=== PATIENT | female | born 1990 | race Hispanic/Latino ===

== ENCOUNTER 2018-03-13 17:58 | Observation (INO) | payer MEDICAID, OTHER ==
[~2018-03-13] VITALS: Ht 144.8 cm; Wt 113.4 kg
[~2018-03-13 17:58] MED LIST: FLUO-126 PO; FURO40TA7 PO; LAMO25TA3 PO; LEVO500T2 PO; TRAZ-144 PO
[2018-03-13 18:51] LABS: BASOPHILS % (AUTO) 0.6 % (0.0-5.0); EOSINOPHILS % (AUTO) 2.8 % (0.0-8.0); HEMATOCRIT 42.8 % (36-48); LYMPHOCYTES % (AUTO) 16.8 % (21.0-51.0); MEAN CORPUSCULAR HEMOGLOBIN 25.5 pg (27.0-33.0); MEAN CORPUSCULAR HGB CONC 31.5 g/dL (32.0-36.0); MONOCYTES % (AUTO) 6.6 % (3.0-13.0); NEUTROPHILS % (AUTO) 73.2 % (40.0-77.0); PLATELET COUNT (AUTO) 275 K/uL (130-400); RED BLOOD CELL COUNT(AUTO) 5.28 MIL/uL (4.00-5.50); RED CELL DISTRIBUTION WIDTH 14.5 % (11.0-15.5); WHITE BLOOD COUNT (AUTO) 9.8 K/uL (4.8-10.8)
[2018-03-13 19:03] LABS: INR 0.98 (0.85-1.15); PARTIAL THROMBOPLASTIN TIME 27.7 SEC (26.3-35.5); PROTHROMBIN TIME 10.3 SEC (9.6-11.6)
[2018-03-13 19:04] LABS: CREATININE 0.6 mg/dL (0.5-1.5); POTASSIUM 4.2 mmol/L (3.5-5.1)
[2018-03-13] MEDS ORDERED: MISOPROSTOL 200 MCG TABLET PR SCH (22:45)
[2018-03-13] MEDS ORDERED: METHYLERGONOVINE MALEATE 0.2 MG/1 ML ML IM SCH (22:45)
[2018-03-13] MEDS ORDERED: PROMETHAZINE HCL 25 MG/ML 1ML AMPULE IM PRN (22:45)
[2018-03-13] MEDS ORDERED: MEPERIDINE-PF 50 MG/ML SYG IM PRN (22:45)
[2018-03-13] MEDS ORDERED: LACTATED RINGERS 1000ML 1,000 ML IV ONE (23:24)
[2018-03-14] VITALS (18 sets, daily range): BP systolic 73–128; BP diastolic 37–71
[2018-03-14] MEDS: LACTATED RINGERS 1000ML 1,000 ML IV SCH ×4 (05:25→23:35)
[2018-03-14] MEDS ORDERED: MISOPROSTOL 200 MCG TABLET ONE (08:01)
[2018-03-14 10:57] LABS: HEMATOCRIT 37.3 % (36-48); MEAN CORPUSCULAR HEMOGLOBIN 26.2 pg (27.0-33.0); MEAN CORPUSCULAR HGB CONC 32.5 g/dL (32.0-36.0); MEAN CORPUSCULAR VOLUME 80.6 fL (79-99); PLATELET COUNT (AUTO) 243 K/uL (130-400); RED BLOOD CELL COUNT(AUTO) 4.63 MIL/uL (4.00-5.50); RED CELL DISTRIBUTION WIDTH 14.2 % (11.0-15.5); WHITE BLOOD COUNT (AUTO) 9.1 K/uL (4.8-10.8)
[2018-03-14] MEDS ORDERED: FENTANYL CITRATE PF 50 MCG/1 ML 2ML VIAL ONE (11:06)
[2018-03-14] MEDS ORDERED: MIDAZOLAM HCL 1 MG/ML 2ML VIAL ONE (11:06)
[2018-03-14] MEDS ORDERED: CALDOLOR 800MG+NS 250ML 250 ML IV ONE (11:43)
[2018-03-14] MEDS ORDERED: SENSORCAINE/DEXT/PF 0.75% 2ML AMP IJ ONE (11:44)
[2018-03-14] MEDS ORDERED: CEFAZOLIN SODIUM 1 GM VIAL IVP ONE (11:45)
[2018-03-14 12:04] LABS: EOSINOPHILS % (MANUAL) 2 % (1-6); LYMPHOCYTES % (MANUAL) 10 % (22-44); MAN.DIFF COMMENT-IMPRESSION MANUAL DIFFERENTIAL; MONOCYTES % (MANUAL) 3 % (2-9); PLATELET MORPHOLOGY COMMENT ADEQUATE; REACTIVE LYMPHOCYTES 1 % (0-0); SEGMENTED NEUTROPHILS % 84 % (40-70)
[2018-03-14] MEDS ORDERED: IPRATROPIUM/ALBUTEROL SULFATE 3 ML SOLUTION IH ONE (12:54)
[2018-03-15 03:59] VITALS: BP 106/53
[2018-03-15 05:35] LABS: BASOPHILS % (AUTO) 0.6 % (0.0-5.0); EOSINOPHILS % (AUTO) 3.1 % (0.0-8.0); HEMATOCRIT 37.3 % (36-48); LYMPHOCYTES % (AUTO) 19.4 % (21.0-51.0); MEAN CORPUSCULAR HEMOGLOBIN 25.3 pg (27.0-33.0); MEAN CORPUSCULAR HGB CONC 31.1 g/dL (32.0-36.0); MEAN CORPUSCULAR VOLUME 81.5 fL (79-99); NEUTROPHILS % (AUTO) 71.9 % (40.0-77.0); PLATELET COUNT (AUTO) 284 K/uL (130-400); RED BLOOD CELL COUNT(AUTO) 4.57 MIL/uL (4.00-5.50); WHITE BLOOD COUNT (AUTO) 7.5 K/uL (4.8-10.8)
[2018-03-15 05:55] LABS: CREATININE 0.6 mg/dL (0.5-1.5); POTASSIUM 3.9 mmol/L (3.5-5.1)
[2018-03-15 07:38] VITALS: BP 115/59
[2018-03-15] MEDS ORDERED: IBUP-1673 PO (11:15)
[2018-03-15] MEDS ORDERED: DOXY100C2 PO (11:16)
[2018-03-15] MEDS ORDERED: TRAM50TA4 PO (11:17)
[2018-03-15] MEDS ORDERED: METR500T PO (11:18)
[2018-03-15 11:30] VITALS: BP 111/63
== END 2018-03-15 15:45 | disposition home or self-care (01) ==
LOC: EDH 17:58 → EDHIP 17:59 → UNDOADMOB 21:56 → WSH 03-14 05:45 → 4CH 03-14 07:50
PROVIDERS: ADMIT Obstetrics & Gynecology; ATTEND Obstetrics & Gynecology
DX: O03.4 Incomplete spontaneous abortion without complication (principal); E66.01 Morbid (severe) obesity due to excess calories; O99.211 Obesity complicating pregnancy, first trimester; O10.111 Pre-existing hypertensive heart disease complicating pregnancy, first trimester; Z3A.10 10 weeks gestation of pregnancy; I50.9 Heart failure, unspecified; O99.011 Anemia complicating pregnancy, first trimester; D64.9 Anemia, unspecified
CPT/HCPCS: 36415 ×3; 59812; 76817; 80048 ×2; 84702 ×2; 84703; 85025 ×3; 85610; 85730; 86850; 86900; 86901; 86922; 88305; 94640; 99285; A4351; A4606; G0378 ×46; J0690; J1741; J2210 ×2; J2250; J3010; J3490; J7120 ×3; 76856

== ENCOUNTER 2018-04-07 17:10 | Inpatient (IN) | payer MEDICAID, OTHER ==
[~2018-04-07] VITALS: Ht 149.9 cm; Wt 124.9 kg
[~2018-04-07 17:10] MED LIST changes: +DOXY100C2 PO; -FLUO-126 PO; -FURO40TA7 PO; +IBUP-1673 PO; -LAMO25TA3 PO; -LEVO500T2 PO; +METR500T PO; +TRAM50TA4 PO; -TRAZ-144 PO
[2018-04-07 18:20] LABS: ABG BASE EXCESS 4.5 mmol/L (-2.0-3.0); ABG HCO3 32.7 mmol/L (21.0-28.0); ABG OXYGEN SATURATION 78.6 % (95.0-99.0); ABG PCO2 65 mmHg (32-45)
[2018-04-07 18:20] LABS: BASOPHILS % (AUTO) 0.5 % (0.0-5.0); EOSINOPHILS % (AUTO) 4.3 % (0.0-8.0); HEMATOCRIT 35.7 % (36-48); LYMPHOCYTES % (AUTO) 13.9 % (21.0-51.0); MEAN CORPUSCULAR HEMOGLOBIN 23.2 pg (27.0-33.0); MEAN CORPUSCULAR HGB CONC 30.8 g/dL (32.0-36.0); MEAN CORPUSCULAR VOLUME 75.5 fL (79-99); MONOCYTES % (AUTO) 6.4 % (3.0-13.0); NEUTROPHILS % (AUTO) 74.9 % (40.0-77.0); PLATELET COUNT (AUTO) 282 K/uL (130-400); RED BLOOD CELL COUNT(AUTO) 4.73 MIL/uL (4.00-5.50); RED CELL DISTRIBUTION WIDTH 16.5 % (11.0-15.5); WHITE BLOOD COUNT (AUTO) 8.6 K/uL (4.8-10.8)
[2018-04-07 18:31] LABS: CREATININE 0.7 mg/dL (0.5-1.5); POTASSIUM 4.4 mmol/L (3.5-5.1)
[2018-04-07 18:36] LABS: ALBUMIN 3.1 g/dL (3.5-5.0); BILIRUBIN,TOTAL 0.4 mg/dL (0.2-1.0); TOTAL PROTEIN, SERUM 7.8 g/dL (6.0-8.3)
[2018-04-07 20:10] LABS: APPEARANCE,URINE Cloudy (CLEAR); BILIRUBIN,URINE Negative (NEGATIVE); COLOR,URINE Yellow (YELLOW); GLUCOSE, URINE (UA) Negative (NEGATIVE); KETONES,URINE Negative (NEGATIVE); LEUKOCYTE ESTERASE ,URINE Trace (NEGATIVE); NITRATE,URINE Negative (NEGATIVE); OCCULT BLOOD,URINE Negative (NEGATIVE); PH,URINE 6.5 (5.0-8.0); PROTEIN,URINE Trace (NEGATIVE)
[2018-04-07 20:31] LABS: RBC,URINE None Seen /HPF (0-1)
[2018-04-07 20:32] LABS: BACTERIA,URINE Few /HPF (None Seen)
[2018-04-07] MEDS ORDERED: FUROSEMIDE 10 MG/ML 4ML VIAL ONE (22:17)
[2018-04-07] MEDS ORDERED: IOPAMIDOL-370 75 ML VIAL IV ONE (23:42)
[2018-04-08] MEDS ORDERED: IPRATROPIUM/ALBUTEROL SULFATE 3 ML SOLUTION IH ONE (01:11)
[2018-04-08] MEDS ORDERED: ZOSYN 3.375GM+NS 50ML 50 ML IV ONE ×2 (01:19→11:10)
[2018-04-08] MEDS ORDERED: ENOXAPARIN SODIUM 40 MG/0.4 ML SYRINGE SQ ONE (01:19)
[2018-04-08 04:18] LABS: ABG BASE EXCESS -3.5 mmol/L (-2.0-3.0); ABG HCO3 25.6 mmol/L (21.0-28.0); ABG OXYGEN SATURATION 91.7 % (95.0-99.0); ABG PCO2 64 mmHg (32-45)
[2018-04-08 06:04] LABS: BASOPHILS % (AUTO) 0.5 % (0.0-5.0); EOSINOPHILS % (AUTO) 4.2 % (0.0-8.0); HEMATOCRIT 33.9 % (36-48); LYMPHOCYTES % (AUTO) 17.4 % (21.0-51.0); MEAN CORPUSCULAR HEMOGLOBIN 22.9 pg (27.0-33.0); MEAN CORPUSCULAR HGB CONC 30.4 g/dL (32.0-36.0); MEAN CORPUSCULAR VOLUME 75.3 fL (79-99); MONOCYTES % (AUTO) 7.1 % (3.0-13.0); NEUTROPHILS % (AUTO) 70.8 % (40.0-77.0); PLATELET COUNT (AUTO) 277 K/uL (130-400); RED CELL DISTRIBUTION WIDTH 16.4 % (11.0-15.5)
[2018-04-08 06:13] LABS: CREATININE 0.6 mg/dL (0.5-1.5); POTASSIUM 3.8 mmol/L (3.5-5.1)
[2018-04-08 06:16] LABS: ALBUMIN 2.8 g/dL (3.5-5.0); BILIRUBIN,TOTAL 0.5 mg/dL (0.2-1.0); TOTAL PROTEIN, SERUM 7.2 g/dL (6.0-8.3)
[2018-04-08 16:00] VITALS: BP 121/71
[2018-04-08 19:20] VITALS: BP 120/68
[2018-04-08] MEDS ORDERED: ACETYLCYSTEINE 10% 100MG/ML 4ML VIAL PO SCH (19:30)
[2018-04-08 20:01] LABS: ABG BASE EXCESS 7.2 mmol/L (-2.0-3.0); ABG HCO3 37.1 mmol/L (21.0-28.0); ABG OXYGEN SATURATION 94.3 % (95.0-99.0); ABG PCO2 79 mmHg (32-45)
[2018-04-08] MEDS: ZOSYN 3.375GM+NS 50ML 50 ML IV SCH (21:03)
[2018-04-08] MEDS: FUROSEMIDE 10 MG/ML 4ML VIAL IVP SCH (21:03)
[2018-04-08] MEDS: ENOXAPARIN SODIUM 40 MG/0.4 ML SYRINGE SQ SCH (21:09)
[2018-04-08 23:10] VITALS: BP 117/71
[2018-04-09] MEDS: ACETYLCYSTEINE 10% 100MG/ML 4ML VIAL IH SCH ×5 (00:31→23:49)
[2018-04-09] MEDS: IPRATROPIUM/ALBUTEROL SULFATE 3 ML SOLUTION IH PRN ×3 (00:32→11:13)
[2018-04-09 03:20] VITALS: BP 111/61
[2018-04-09 05:19] LABS: MEAN CORPUSCULAR HGB CONC 30.9 g/dL (32.0-36.0); MEAN CORPUSCULAR VOLUME 74.3 fL (79-99); PLATELET COUNT (AUTO) 292 K/uL (130-400); RED BLOOD CELL COUNT(AUTO) 4.44 MIL/uL (4.00-5.50); RED CELL DISTRIBUTION WIDTH 16.3 % (11.0-15.5); WHITE BLOOD COUNT (AUTO) 7.8 K/uL (4.8-10.8)
[2018-04-09 05:27] LABS: CREATININE 0.6 mg/dL (0.5-1.5); POTASSIUM 3.9 mmol/L (3.5-5.1)
[2018-04-09 06:21] LABS: ABG BASE EXCESS 8.5 mmol/L (-2.0-3.0); ABG HCO3 37.7 mmol/L (21.0-28.0); ABG OXYGEN SATURATION 91.5 % (95.0-99.0); ABG PCO2 74 mmHg (32-45)
[2018-04-09 08:00] VITALS: BP 117/59
[2018-04-09] MEDS: PANTOPRAZOLE SODIUM 40 MG TABLET.DR PO SCH (08:50)
[2018-04-09] MEDS: ENOXAPARIN SODIUM 40 MG/0.4 ML SYRINGE SQ SCH ×2 (08:50→20:53)
[2018-04-09] MEDS: FUROSEMIDE 10 MG/ML 4ML VIAL IVP SCH ×2 (08:50→20:49)
[2018-04-09 11:00] VITALS: BP 120/65
[2018-04-09] MEDS ORDERED: IPRATROPIUM/ALBUTEROL SULFATE 3 ML SOLUTION IH SCH (11:30)
[2018-04-09] MEDS: IPRATROPIUM/ALBUTEROL SULFATE 3 ML SOLUTION IH SCH ×3 (12:00→23:49)
[2018-04-09] MEDS: ZOSYN 3.375GM+NS 50ML 50 ML IV SCH ×2 (14:30→20:49)
[2018-04-09 16:00] VITALS: BP 127/50
[2018-04-09 19:20] VITALS: BP 115/63
[2018-04-09 23:20] VITALS: BP 118/65
[2018-04-10 00:28] VITALS: BP 108/56
[2018-04-10 03:20] VITALS: BP 135/53
[2018-04-10] MEDS: ZOSYN 3.375GM+NS 50ML 50 ML IV SCH ×3 (04:56→20:41)
[2018-04-10 05:57] LABS: BASOPHILS % (AUTO) 0.5 % (0.0-5.0); EOSINOPHILS % (AUTO) 6.3 % (0.0-8.0); HEMATOCRIT 33.1 % (36-48); LYMPHOCYTES % (AUTO) 17.3 % (21.0-51.0); MEAN CORPUSCULAR HEMOGLOBIN 23.2 pg (27.0-33.0); MEAN CORPUSCULAR VOLUME 74.8 fL (79-99); MONOCYTES % (AUTO) 6.3 % (3.0-13.0); NEUTROPHILS % (AUTO) 69.6 % (40.0-77.0); PLATELET COUNT (AUTO) 297 K/uL (130-400); RED BLOOD CELL COUNT(AUTO) 4.42 MIL/uL (4.00-5.50); RED CELL DISTRIBUTION WIDTH 16.8 % (11.0-15.5); WHITE BLOOD COUNT (AUTO) 6.7 K/uL (4.8-10.8)
[2018-04-10 06:11] LABS: ALBUMIN 2.8 g/dL (3.5-5.0); BILIRUBIN,TOTAL 0.9 mg/dL (0.2-1.0); CREATININE 0.6 mg/dL (0.5-1.5); MAGNESIUM 1.9 mg/dL (1.80-2.40); PHOSPHORUS 3.8 mg/dL (2.5-4.9); POTASSIUM 3.8 mmol/L (3.5-5.1); TOTAL PROTEIN, SERUM 7.4 g/dL (6.0-8.3)
[2018-04-10 06:12] LABS: B-TYPE NATRIURETIC PEPTIDE 29 pg/mL (0-100)
[2018-04-10 06:15] LABS: HEMOGLOBIN A1C 5.4 % (4.0-6.0)
[2018-04-10 06:26] LABS: % IRON SATURATION 5.9 % (22-44)
[2018-04-10] MEDS: ACETYLCYSTEINE 10% 100MG/ML 4ML VIAL IH SCH ×4 (06:26→23:57)
[2018-04-10] MEDS: IPRATROPIUM/ALBUTEROL SULFATE 3 ML SOLUTION IH SCH ×4 (06:26→23:56)
[2018-04-10] MEDS: FUROSEMIDE 10 MG/ML 4ML VIAL IVP SCH ×2 (09:01→20:43)
[2018-04-10] MEDS: ENOXAPARIN SODIUM 40 MG/0.4 ML SYRINGE SQ SCH ×2 (09:01→20:42)
[2018-04-10 09:15] VITALS: BP 111/60
[2018-04-10] MEDS: PANTOPRAZOLE SODIUM 40 MG TABLET.DR PO SCH (09:30)
[2018-04-10 12:45] VITALS: BP 116/67
[2018-04-10 16:48] VITALS: BP 96/49
[2018-04-10 19:10] VITALS: BP 102/52
[2018-04-11 04:22] VITALS: BP 112/51
[2018-04-11] MEDS: ZOSYN 3.375GM+NS 50ML 50 ML IV SCH ×3 (04:58→21:54)
[2018-04-11] MEDS: ACETYLCYSTEINE 10% 100MG/ML 4ML VIAL IH SCH ×4 (06:04→23:52)
[2018-04-11] MEDS: IPRATROPIUM/ALBUTEROL SULFATE 3 ML SOLUTION IH SCH ×4 (06:04→23:52)
[2018-04-11 07:00] VITALS: BP 117/67
[2018-04-11 08:06] LABS: ABG BASE EXCESS 11.2 mmol/L (-2.0-3.0); ABG HCO3 39.4 mmol/L (21.0-28.0); ABG PCO2 67 mmHg (32-45)
[2018-04-11] MEDS: PANTOPRAZOLE SODIUM 40 MG TABLET.DR PO SCH (09:37)
[2018-04-11] MEDS: FUROSEMIDE 10 MG/ML 4ML VIAL IVP SCH ×2 (09:38→21:55)
[2018-04-11] MEDS: ENOXAPARIN SODIUM 40 MG/0.4 ML SYRINGE SQ SCH ×2 (09:39→21:57)
[2018-04-11 11:00] VITALS: BP 114/58
[2018-04-11] MEDS: ACETAMINOPHEN 325 MG TAB PO PRN (13:43)
[2018-04-11 16:00] VITALS: BP 122/62
[2018-04-11 19:15] VITALS: BP 105/48
[2018-04-12 00:06] VITALS: BP 116/70
[2018-04-12 04:20] VITALS: BP 107/78
[2018-04-12] MEDS: IPRATROPIUM/ALBUTEROL SULFATE 3 ML SOLUTION IH SCH ×4 (05:57→22:57)
[2018-04-12] MEDS: ACETYLCYSTEINE 10% 100MG/ML 4ML VIAL IH SCH ×4 (05:58→22:57)
[2018-04-12] MEDS: ZOSYN 3.375GM+NS 50ML 50 ML IV SCH ×3 (06:12→20:36)
[2018-04-12 07:00] VITALS: BP 110/54
[2018-04-12] MEDS: FUROSEMIDE 10 MG/ML 4ML VIAL IVP SCH (09:40)
[2018-04-12] MEDS: ENOXAPARIN SODIUM 40 MG/0.4 ML SYRINGE SQ SCH ×2 (09:47→20:39)
[2018-04-12] MEDS: PANTOPRAZOLE SODIUM 40 MG TABLET.DR PO SCH (09:48)
[2018-04-12 11:00] VITALS: BP 101/64
[2018-04-12] MEDS: ACETAMINOPHEN 325 MG TAB PO PRN (14:41)
[2018-04-12 15:00] VITALS: BP 123/50
[2018-04-12 20:48] VITALS: BP 125/58
[2018-04-13 00:35] VITALS: BP 100/62
[2018-04-13 04:31] VITALS: BP 107/65
[2018-04-13] MEDS: ZOSYN 3.375GM+NS 50ML 50 ML IV SCH ×3 (05:45→22:59)
[2018-04-13] MEDS: IPRATROPIUM/ALBUTEROL SULFATE 3 ML SOLUTION IH SCH ×3 (06:17→18:09)
[2018-04-13] MEDS: ACETYLCYSTEINE 10% 100MG/ML 4ML VIAL IH SCH ×3 (06:17→18:09)
[2018-04-13 08:00] VITALS: BP 93/58
[2018-04-13] MEDS: PANTOPRAZOLE SODIUM 40 MG TABLET.DR PO SCH (10:16)
[2018-04-13] MEDS: FUROSEMIDE 40 MG TABLET PO SCH (10:16)
[2018-04-13] MEDS: ENOXAPARIN SODIUM 40 MG/0.4 ML SYRINGE SQ SCH ×2 (10:18→23:04)
[2018-04-13] MEDS: ACETAMINOPHEN 325 MG TAB PO PRN (10:28)
[2018-04-13 12:00] VITALS: BP 124/70
[2018-04-13 16:00] VITALS: BP 114/41
[2018-04-13 20:37] VITALS: BP 99/56
[2018-04-14] VITALS (7 sets, daily range): BP systolic 98–134; BP diastolic 54–72
[2018-04-14] MEDS: IPRATROPIUM/ALBUTEROL SULFATE 3 ML SOLUTION IH SCH ×5 (00:04→23:21)
[2018-04-14] MEDS: ACETYLCYSTEINE 10% 100MG/ML 4ML VIAL IH SCH ×5 (00:05→23:21)
[2018-04-14] MEDS: ZOSYN 3.375GM+NS 50ML 50 ML IV SCH ×3 (05:53→20:15)
[2018-04-14] MEDS: PANTOPRAZOLE SODIUM 40 MG TABLET.DR PO SCH (09:20)
[2018-04-14] MEDS: FUROSEMIDE 40 MG TABLET PO SCH (09:20)
[2018-04-14] MEDS: ENOXAPARIN SODIUM 40 MG/0.4 ML SYRINGE SQ SCH ×2 (09:21→20:15)
[2018-04-15 00:40] VITALS: BP 116/61
[2018-04-15 04:43] VITALS: BP 110/63
[2018-04-15] MEDS: ZOSYN 3.375GM+NS 50ML 50 ML IV SCH ×2 (04:49→13:00)
[2018-04-15] MEDS: IPRATROPIUM/ALBUTEROL SULFATE 3 ML SOLUTION IH SCH ×2 (06:17→11:12)
[2018-04-15] MEDS: ACETYLCYSTEINE 10% 100MG/ML 4ML VIAL IH SCH ×2 (06:17→11:12)
[2018-04-15 08:00] VITALS: BP 100/64
[2018-04-15] MEDS: PANTOPRAZOLE SODIUM 40 MG TABLET.DR PO SCH (08:21)
[2018-04-15] MEDS: FUROSEMIDE 40 MG TABLET PO SCH (08:21)
[2018-04-15] MEDS: ENOXAPARIN SODIUM 40 MG/0.4 ML SYRINGE SQ SCH (08:22)
[2018-04-15 11:00] VITALS: BP 127/68
[2018-04-15] MEDS ORDERED: FURO40TA7 PO (15:42)
[2018-04-15] MEDS ORDERED: PANT40TA PO (15:42)
[2018-04-15] MEDS ORDERED: IPRA3AMP24 IH (15:42)
== END 2018-04-15 17:47 | disposition home or self-care (01) | DRG 208 ==
LOC: EDH 17:10 → EDHIP 17:11 → OBSVTOIN 17:11 → 3AH 04-08 15:54
PROVIDERS: ADMIT Internal Medicine; ATTEND Internal Medicine
PROC: 5A1935Z Respiratory Ventilation, Less than 24 Consecutive Hours (ICD-10-PCS; principal; 2018-04-09)
PROC: 5A1935Z Respiratory Ventilation, Less than 24 Consecutive Hours (ICD-10-PCS; 2018-04-10)
PROC: 5A1935Z Respiratory Ventilation, Less than 24 Consecutive Hours (ICD-10-PCS; 2018-04-11)
DX: J96.21 Acute and chronic respiratory failure with hypoxia (principal); I50.33 Acute on chronic diastolic (congestive) heart failure; Z68.43 Body mass index [BMI] 50.0-59.9, adult; J98.11 Atelectasis; I11.0 Hypertensive heart disease with heart failure; J96.22 Acute and chronic respiratory failure with hypercapnia; E66.01 Morbid (severe) obesity due to excess calories; G47.33 Obstructive sleep apnea (adult) (pediatric); Z93.0 Tracheostomy status; Z87.01 Personal history of pneumonia (recurrent)
CPT/HCPCS: 36415; 36600; 71045; 71275; 80048; 80053; 80061; 81001; 82803; 82948; 83036; 83540; 83550; 83735; 83880; 84100; 84703; 85025; 85027; 85378; 87071; 87205; 87804; 92597; 93005; 93306; 93970; 94640; 94660; 94664; 94760; 97039; C9113; J1650; J1940; J2543; J7608; Q9967

== ENCOUNTER 2019-05-28 12:35 | Emergency (ER) | payer MEDICAID, OTHER ==
[~2019-05-28 12:35] MED LIST changes: -DOXY100C2 PO; +FURO40TA7 PO; -IBUP-1673 PO; +IPRA3AMP24 IH; -METR500T PO; +PANT40TA PO; -TRAM50TA4 PO
[2019-05-28 14:14] LABS: BASOPHILS % (AUTO) 0.4 % (0.0-5.0); EOSINOPHILS % (AUTO) 2.8 % (0.0-8.0); HEMATOCRIT 41.4 % (36-48); LYMPHOCYTES % (AUTO) 14.5 % (21.0-51.0); MEAN CORPUSCULAR HEMOGLOBIN 25.4 pg (27.0-33.0); MEAN CORPUSCULAR VOLUME 79.5 fL (79-99); MONOCYTES % (AUTO) 6.2 % (3.0-13.0); NEUTROPHILS % (AUTO) 76.1 % (40.0-77.0); PLATELET COUNT (AUTO) 233 K/uL (130-400); RED BLOOD CELL COUNT(AUTO) 5.21 MIL/uL (4.00-5.50); RED CELL DISTRIBUTION WIDTH 14.4 % (11.0-15.5); WHITE BLOOD COUNT (AUTO) 12.5 K/uL (4.8-10.8)
[2019-05-28 14:35] LABS: INR 0.97 (0.85-1.15); PARTIAL THROMBOPLASTIN TIME 34.2 SEC (26.3-35.5); PROTHROMBIN TIME 10.2 SEC (9.6-11.6)
[2019-05-28 14:50] LABS: CREATININE 0.6 mg/dL (0.5-1.5); POTASSIUM 3.9 mmol/L (3.5-5.1)
[2019-05-28 14:52] LABS: B-TYPE NATRIURETIC PEPTIDE 10 pg/mL (0-100)
[2019-05-28 14:56] LABS: ALBUMIN 3.3 g/dL (3.5-5.0); BILIRUBIN,TOTAL 0.6 mg/dL (0.2-1.0); TOTAL PROTEIN, SERUM 8.6 g/dL (6.0-8.3)
[2019-05-28] MEDS ORDERED: SODIUM CHLORIDE 0.9% 1000ML 1,000 ML IV ONE (15:03)
[2019-05-28 15:05] LABS: APPEARANCE,URINE Cloudy (CLEAR); BILIRUBIN,URINE Negative (NEGATIVE); COLOR,URINE Dark Yellow (YELLOW); GLUCOSE, URINE (UA) Negative (NEGATIVE); KETONES,URINE Negative (NEGATIVE); LEUKOCYTE ESTERASE ,URINE Small (NEGATIVE); NITRATE,URINE Negative (NEGATIVE); OCCULT BLOOD,URINE Negative (NEGATIVE); PROTEIN,URINE Trace mg/dL (NEGATIVE)
[2019-05-28 15:10] LABS: HCG,QUAL RESULT NEGATIVE (NEGATIVE)
[2019-05-28 15:12] LABS: RAPID GROUP A STREP NEGATIVE (NEGATIVE)
[2019-05-28] MEDS ORDERED: IOHEXOL 350 MG/ML 100ML INFUS..BTL IV ONE (15:23)
[2019-05-28 15:29] LABS: BACTERIA,URINE Few /HPF (None Seen); RBC,URINE 0-1 /HPF (0-1)
[2019-05-28 15:30] LABS: MUCUS,URINE Rare LPF (None Seen); SQUAMOUS EPITHELIAL CELL,UR Few /HPF (0-2)
== END 2019-05-28 17:28 | disposition home or self-care (01) ==
LOC: EDH 12:35
DX: J20.9 Acute bronchitis, unspecified (principal); I11.0 Hypertensive heart disease with heart failure; I50.9 Heart failure, unspecified; E66.01 Morbid (severe) obesity due to excess calories; Z68.43 Body mass index [BMI] 50.0-59.9, adult
CPT/HCPCS: 36415; 71046; 71275; 80053; 81001; 81025; 83605; 83880; 84484; 85025; 85610; 85730; 87040 ×2; 87077; 87088; 87186; 87804 ×2; 87880; 93005; 99285; J7030; Q9967

== ENCOUNTER 2020-07-13 22:14 | Emergency (ER) | payer MEDICAID, OTHER ==
[2020-07-13 22:55] LABS: APPEARANCE,URINE Cloudy (CLEAR); BILIRUBIN,URINE Negative (NEGATIVE); COLOR,URINE Dark Yellow (YELLOW); GLUCOSE, URINE (UA) Negative (NEGATIVE); KETONES,URINE Negative (NEGATIVE); LEUKOCYTE ESTERASE ,URINE Large (NEGATIVE); NITRATE,URINE Negative (NEGATIVE); OCCULT BLOOD,URINE Large (NEGATIVE); PH,URINE 6.5 (5.0-8.0); PROTEIN,URINE POS 2+ mg/dL (NEGATIVE)
[2020-07-13 23:04] LABS: BACTERIA,URINE Moderate /HPF (None Seen); WBC,URINE TNTC /HPF (0-1)
[2020-07-13 23:05] LABS: HCG,QUAL RESULT NEGATIVE (NEGATIVE); MUCUS,URINE Moderate LPF (None Seen); SQUAMOUS EPITHELIAL CELL,UR Few /HPF (0-2)
[2020-07-13 23:20] LABS: BASOPHILS % (AUTO) 0.4 % (0.0-5.0); EOSINOPHILS % (AUTO) 3.1 % (0.0-8.0); HEMATOCRIT 49.4 % (36-48); MEAN CORPUSCULAR HEMOGLOBIN 21.9 pg (27.0-33.0); MEAN CORPUSCULAR HGB CONC 28.3 g/dL (32.0-36.0); MEAN CORPUSCULAR VOLUME 77.3 fL (79-99); MONOCYTES % (AUTO) 6.9 % (3.0-13.0); NEUTROPHILS % (AUTO) 69.3 % (40.0-77.0); PLATELET COUNT (AUTO) 290 K/uL (130-400); RED BLOOD CELL COUNT(AUTO) 6.39 MIL/uL (4.00-5.50); RED CELL DISTRIBUTION WIDTH 19.2 % (11.0-15.5); WHITE BLOOD COUNT (AUTO) 9.9 K/uL (4.8-10.8)
[2020-07-13] MEDS ORDERED: CEFTRIAXONE SODIUM 1 GM ONE (23:44)
[2020-07-13] MEDS ORDERED: LIDOCAINE HCL 2% JELLY 5 ML ONE (23:44)
[2020-07-13] MEDS ORDERED: SODIUM CHLORIDE 0.9% 50 ML IV ONE (23:44)
[2020-07-13 23:57] LABS: CREATININE 0.8 mg/dL (0.5-1.5); POTASSIUM 5.2 mmol/L (3.5-5.1)
[2020-07-14 00:04] LABS: ALBUMIN 3.2 g/dL (3.5-5.0); BILIRUBIN,TOTAL 0.6 mg/dL (0.2-1.0); TOTAL PROTEIN, SERUM 7.9 g/dL (6.0-8.3)
== END 2020-07-14 00:57 | disposition home or self-care (01) ==
LOC: EDH 22:14
DX: N39.0 Urinary tract infection, site not specified (principal); B37.3 Candidiasis of vulva and vagina; I11.0 Hypertensive heart disease with heart failure; I50.9 Heart failure, unspecified
CPT/HCPCS: 36415; 80053; 81001; 81025; 83605; 85025; 87077; 87088; 87186; 96374; 99283; J0696

== ENCOUNTER 2023-11-17 12:00 | Emergency (ER) | payer OTHER ==
[~2023-11-17] VITALS: Ht 154.9 cm; Wt 175.5 kg
[2023-11-17 15:13] VITALS: BP 148/88; PULSE 91; RESP 20; O2SAT 0
== END 2023-11-17 15:26 | disposition home or self-care (01) ==
LOC: EDH 12:00
DX: Z43.0 Encounter for attention to tracheostomy (principal); Z79.899 Other long term (current) drug therapy; Z98.890 Other specified postprocedural states